=== PATIENT | male | born 1965 | race Caucasian/White ===

== ENCOUNTER 2021-12-29 12:33 | Outpatient (CLI) | payer MEDICARE, SELFPAY | END 2021-12-29 23:59 | disposition home or self-care (01) | PROVIDERS: PCP Family Medicine; Referring Provider Internal Medicine Gastroenterology; Visit Provider Internal Medicine Gastroenterology | DX: Z20.822 Contact with and (suspected) exposure to COVID-19 (principal) | CPT/HCPCS: 87426; C9803 ==